=== PATIENT | female | born 1995 | race African-American/Black ===

== ENCOUNTER 2017-01-15 14:24 | Emergency (ER) | payer OTHER ==
[~2017-01-15] VITALS: Ht 160 cm; Wt 100.0 kg
[2017-01-15 14:30] VITALS: BP 129/61; PULSE 100; TEMP 97.9
[2017-01-15] MEDS ORDERED: BIRTH CONTROL PO (14:34)
[2017-01-15] MEDS ORDERED: FLEXERIL 1010 MG/TAB PO (15:55)
== END 2017-01-15 16:11 | disposition home or self-care (01) ==
LOC: COL.ER 14:24
DX: M54.6 Pain in thoracic spine (principal)